=== PATIENT | male | born 1945 | race Hispanic/Latino ===

== ENCOUNTER 2019-04-08 08:19 | Outpatient (CLI) | payer MEDICARE ==
[2019-04-08 08:52] LABS: Estimated GFR-MDRD - POC Greater than 90
[2019-04-08] MEDS ORDERED: Iopamidol 370 76% 100 ML VIAL ONE (09:00)
--- NOTE | 2019-04-08 11:57 | CT ---
ABDOMEN AND PELVIC CT SCAN WITH AND WITHOUT IV CONTRAST: Date: 04/08/19 HISTORY: Hematuria, gross. TECHNIQUE: With and without contrast CT examination of the abdomen and pelvis is performed with multiphase postc ontrast imaging. FINDINGS: Marked fatty changes in the liver. 4.0 cm diameter left lobe of liver cyst. Bilateral renal cysts up to 2.9 cm on the left side. Prominent rotational changes of the right kidney with a dominant appearin g right renal artery coming from the right common iliac artery. 0.6 x 0.9 cm nonobstructing right bakari al calculus. Gallbladder, pancreas, and spleen appear unremarkable. 0.6 cm diameter left adrenal myel olipoma. Scattered diverticulosis without acute diverticulitis. No CT evidence for acute appendicitis . No evidence for bowel obstruction. Lumbar spine degenerative disc disease. IMPRESSION: Nonobstructing right renal calculus. Bilateral renal cysts. Left lobe of liver cyst. Marked fatty jonathan nges in the liver. Other findings as above. POS: TPC
== END 2019-04-08 08:20 | disposition home or self-care (01) ==
LOC: SCSCT 08:19
PROVIDERS: ATTEND Family Medicine
DX: R31.0 Gross hematuria (principal); N28.1 Cyst of kidney, acquired; N20.0 Calculus of kidney; K76.89 Other specified diseases of liver; K76.0 Fatty (change of) liver, not elsewhere classified; D35.02 Benign neoplasm of left adrenal gland; M51.36 Other intervertebral disc degeneration, lumbar region; D17.79 Benign lipomatous neoplasm of other sites; K57.90 Diverticulosis of intestine, part unspecified, without perforation or abscess without bleeding
CPT/HCPCS: 74178; 82565; Q9967

== ENCOUNTER 2019-05-09 08:13 | Outpatient (CLI) | payer MEDICARE ==
[2019-05-09 11:07] LABS: Hemoglobin 15.3 g/dL (14.0-18.0); Mean Corpuscular HGB CONC 33.8 g/dL (32.0-36.0); Mean Corpuscular Hemoglobin 32.3 pg (27.0-31.0); Mean Corpuscular Volume 95.7 fL (78.0-98.0); Mean Platelet Volume 8.5 fL (7.4-10.4); Platelet Count 174 thou/uL (130-400); RBC Distribution Width 11.7 % (11.5-14.5); Red Blood Cell (RBC) Count 4.74 mill/uL (4.70-6.10); White Blood Cell (WBC) Count 6.6 thou/uL (4.8-10.8)
[2019-05-09 11:09] LABS: Bacteria/HPF None Seen HPF (None Seen); Bilirubin Negative (Negative); Blood, Urine Negative (Negative); Clarity Clear (Clear); Glucose, Urine (Dipstick) Normal (Negative); Leukocyte Negative Leu/uL (Negative); Nitrite Negative (Negative); Protein, Urine (Dipstick) Negative (Neg-Trace); RBC/HPF 0-3 HPF (0-3); Squamous Epithelial None Seen HPF (0-3); Urobilinogen Normal mg/dL (Less than 2); WBC/HPF 0-3 HPF (0-3)
[2019-05-09 11:12] LABS: PTT 28.1 SEC (22.9-36.1)
[2019-05-09 11:13] LABS: INR-International Normal Ratio 1.1
[2019-05-09 11:28] LABS: Anion Gap 8 mmol/L (10-20); BUN (Urea Nitrogen) 23 mg/dL (8.4-25.7); Calc. Creatinine Clearance 0 mL/min (70-130); Calcium 9.5 mg/dL (7.8-10.44); Carbon Dioxide 29 mmol/L (23-31); Chloride 103 mmol/L (98-107); Estimated GFR-MDRD 77; Glucose 119 mg/dL (83-110); Potassium 4.2 mmol/L (3.5-5.1); Sodium 136 mmol/L (136-145)
== END 2019-05-09 08:14 | disposition home or self-care (01) ==
LOC: LABBT 08:13
PROVIDERS: ATTEND Urology
DX: Z01.818 Encounter for other preprocedural examination (principal); N20.0 Calculus of kidney
CPT/HCPCS: 80048; 81001; 85027; 85610; 85730; 87086; 93005; 93010

== ENCOUNTER 2019-05-17 06:49 | Day surgery (SDC) | payer MEDICARE ==
[2019-05-09 11:16] VITALS: BMI 31.3
[2019-05-17] MEDS ORDERED: Levofloxacin 500 mg/D5W 100 ml Premix Bag ONE (09:16)
[2019-05-17] MEDS ORDERED: Fentanyl 100 MCG/2 ML VIAL ONE (10:30)
[2019-05-17] MEDS ORDERED: Phenazopyridine HCl 97.5 MG TABLET ONE (12:13)
--- NOTE | 2019-05-17 12:42 | OP ---
DATE OF PROCEDURE: 05/17/2019 SERVICE: Urology. PREOPERATIVE DIAGNOSIS: Right renal stone. POSTOPERATIVE DIAGNOSIS: Right renal stone. PROCEDURES PERFORMED: Right ureteroscopy, laser lithotripsy, basket manipulation of stone, and placement of 6 x 24 double-J stent. INDICATION FOR PROCEDURE: Mr. Dumas is a 73-year-old male, who presented to me with kidney stones. He had a CT done for gross hematuria, which demonstrated a 9 x 6 mm calculus in the right kidney. We discussed ureteroscopy versus ESWL, and he preferred to go with ureteroscopy for the higher stone clearance rates. Risks and benefits were discussed, and he has agreed to proceed to forward. DESCRIPTION OF PROCEDURE: After identification of his armband and verification of consent, the patient was brought back to the operating room. He underwent general anesthesia with an LMA. He was then placed in dorsal lithotomy position and prepped and draped in usual sterile fashion. After appropriate time-out, a lubricated 22-Jordanian rigid cystoscope was introduced per urethra into the bladder. The prostate was hypertrophic, and the bladder showed mild trabeculation, but otherwise was unremarkable. Attention was turned to the right ureteral orifice, which was cannulated with a 0.035 Sensor wire up to the level of renal pelvis. The stone was visible on fluoroscopy in the lower pole. The cystoscope was then removed and a dual-lumen catheter was advanced over the Sensor wire up to the level of proximal ureter. An Amplatz Super Stiff wire was then placed through the second lumen up to the level of renal pelvis and the dual-lumen removed. The Sensor wire was secured to the drapes as a safety wire. An 11/13 x 36 cm ureteral access sheath was advanced over the Super Stiff wire up to the level of the mid ureter, and then, the inner cannula removed along with the Super Stiff wire, leaving the sheath and Sensor wire in place. A flexible digital ureteroscope was then passed through the ureteral access sheath into the proximal ureter and into the renal pelvis. A full pyeloscopy was performed, and the only stone encountered was the 9 x 6 mm stone in the lower pole. Using 1.9-Jordanian Zero Tip Nitinol basket, the stone was repositioned into the upper pole, and then, the basket removed. A 273 micron ball-tip laser fiber was then brought in and fragmentation of the stone was undertaken with complete fragmentation of the stone on dusting setting. All the stone fragments were fragmented until they were approximately 1 mm in size. Upon completion, there were no stone fragments greater than a millimeter. There was extremely successful dusting, and there were no fragments large enough to remove. I did not feel that it would be worthwhile to try to remove a bunch of small fragments as all of them were small enough to pass and it would be very difficult to try and get enough specimen for an adequate stone analysis, instead we opted to go ahead and let the stone pass on its own. Pull-back ureteroscopy was employed, no other additional stones were found in the ureter. The ureteroscope and sheath were then removed, and the cystoscope was then backloaded over the Sensor wire back into the bladder. A 6 x 24 double-J stent with no string attached was advanced over the Sensor wire up into the kidney. The wire was removed leaving a good curl in the kidney and a good curl in the bladder. The bladder was then emptied and the cystoscope removed. The patient was then awakened and taken to PACU recovery in stable condition. COMPLICATIONS: None. ESTIMATED BLOOD LOSS: Minimal. TUBES AND DRAINS: A 6 x 24 double-J stent on the right. SPECIMEN: None. DISPOSITION: The patient will be discharged home and follow up with me in 1 week for cysto stent pull. Job ID: [id number]
[2019-05-17] MEDS ORDERED: Ondansetron PF 4 MG/2 ML Vial ONE (15:49)
[2019-05-17] MEDS ORDERED: PROPOFOL 200 MG/20 ML VIAL ONE (15:49)
[2019-05-17] MEDS ORDERED: Lidocaine 1% PF 5 ML VIAL ONE (15:49)
[2019-05-17] MEDS ORDERED: Dexamethasone 20 MG/5 ML VIAL ONE (15:49)
[2019-05-17] MEDS ORDERED: ePHEDrine 50 MG/ML VIAL ONE (15:49)
== END 2019-05-17 14:00 | disposition home or self-care (01) ==
LOC: SDC 06:49
PROVIDERS: ATTEND Urology
PROC: 0TF38ZZ Fragmentation in Right Kidney Pelvis, Via Natural or Artificial Opening Endoscopic (ICD-10-PCS; principal; 2019-05-17)
PROC: 0T768DZ Dilation of Right Ureter with Intraluminal Device, Via Natural or Artificial Opening Endoscopic (ICD-10-PCS; 2019-05-17)
DX: N20.0 Calculus of kidney (principal); N40.1 Benign prostatic hyperplasia with lower urinary tract symptoms; R35.1 Nocturia; R39.12 Poor urinary stream; G56.00 Carpal tunnel syndrome, unspecified upper limb; I10 Essential (primary) hypertension; E78.00 Pure hypercholesterolemia, unspecified; Z79.899 Other long term (current) drug therapy
CPT/HCPCS: 52356; 76000; C1769; J1100; J1956; J2001; J2405; J2704; J3010; J3490

== ENCOUNTER 2019-07-03 08:42 | Outpatient (CLI) | payer MEDICARE ==
--- NOTE | 2019-07-03 09:44 | ULT ---
RENAL ULTRASOUND HISTORY: History of right-sided renal stent for renal calculus COMPARISON: CT the abdomen and pelvis dated April 08, 2019 FINDINGS: Right Kidney: Size: 12.4 x 6.8 x 7.9 Abnormality: The right kidney is malrotated. There is slight prominence of the renal pelvis without f rank pelvocaliectasis. Left Kidney: Size: 14.9 x 6.6 x 8.2 Abnormality: Normal cortical echotexture. No hydronephrosis there is a 2.6 cm cyst involving the ante rior aspect of the left mid kidney. Urinary bladder: Normal mucosa. Prevoid bladder volume was 303 cc. Bilateral ureteral jets are demons trated at the level of the bladder. IMPRESSION: 1. Stable left renal cyst. 2. 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
== END 2019-07-03 08:43 | disposition home or self-care (01) ==
LOC: SCSULT 08:42
PROVIDERS: ATTEND Urology
DX: N20.0 Calculus of kidney (principal)
CPT/HCPCS: 76770